=== PATIENT | male | born 1970 | race Caucasian/White ===

== ENCOUNTER 2016-06-08 17:39 | Emergency (ER) | payer BC ==
[~2016-06-08] VITALS: Ht 177.8 cm; Wt 95.4 kg
[2016-06-08 17:44] VITALS: TEMP 37; Ht 177.8 cm; Wt 95.4 kg
[2016-06-08] MEDS ORDERED: AMPICILLIN/SULBACTAM SOD INJ 3,000 MG in SODIUM CHLORIDE 0.9% 100ML 100 ML IV ONE (18:30)
[2016-06-08 18:47] LABS: BASO % 0.2 %; BASO ABS # 0.02 K/uL (0-0.2); COMPLETE YES; HEMATOCRIT 43.8 % (42-52); IG% 0.2 %; LYMPH % 10.8 %; MEAN CELL VOLUME 89.8 fL (80-100); MEAN CORPUSCULAR HEMOGLOBIN 32.4 pg (25-34); MEAN CORPUSCULAR HGB CONC 36.1 g/dl (32-36); MEAN PLATELET VOLUME 9.1 fL (7.4-10.4); MONO % 10.8 %; PLATELET COUNT 218 K/uL (130-400); RED BLOOD COUNT 4.88 M/uL (4.7-6.1); WHITE BLOOD COUNT 10.23 K/uL (4.8-10.8)
--- NOTE | 2016-06-08 19:05 | EMERGENCY ROOM VISIT NOTE ---
History Report prepared by Timoteo: Demetria Stevens Under the Supervision of: Dr. Sunday Lezama M.D. First contact with patient: 18:07 Chief Complaint: DENTAL PAIN Stated Complaint: POSSIBLE ABCESS- LEFT EYE Nursing Triage Summary: Pt reports swelling and redness to left cheek/eye area sx started saturday denies pain "it is draining a little bit inside my mouth" History of Present Illness The patient is a 45 year old male who presents to the Emergency Room with complaints of worsening redness and swelling to his left cheek. The swelling and redness spreads to under his left eye. He states that these symptoms started two days ago. The area started to drain on the inside of his mouth this morning. The patient states that he had a similar episode of swelling this summer, but that this resolved quickly. Additionally, the patient states that it has been 3-4 years since he had been treated by a dentist. The patient denies any chronic medical issues. The patient denies any pain associated with the swelling, swelling or bumps to other areas of his body, dental pain, LOC, headache, fevers, chills, diaphoresis, visual changes, neck pain, chest pain, breathing difficulties, nausea, vomiting, abdominal pain, back pain, melena, hematochezia, urinary symptoms, numbness, weakness, lymphadenopathy, rash, or other complaints. Source of History: patient Onset: 2 days ago Position: other (face) Quality: other (facial swelling and redness) Timing: worsening Note: The area started to drain on the inside of his mouth this morning. Review of Systems See HPI for pertinent positives and negatives. A total of ten systems were reviewed and were otherwise negative. Past Medical & Surgical Medical Problems: (1) Lyme disease Family History Diabetes mellitus Heart disease Hypertension Kidney disease Kidney stones Social History Smoking Status: Never Smoker Marital Status: Housing Status: lives with significant other Occupation Status: employed Current/Historical Medications Scheduled Amoxicillin & Pot Clavulanate (Augmentin 875-125 mg), 875 MG PO BID Allergies Coded Allergies: No Known Allergies (Unverified , 06/08/16) Physical Exam Vital Signs Date Time Temp Pulse Resp B/P Pulse Ox O2 Delivery O2 Flow Rate FiO2 06/08/16 19:47 78 18 135/78 97 Room Air 06/08/16 17:44 37.0 89 18 157/99 95 Room Air Physical Exam GENERAL: Awake, alert, well-appearing, in no distress HENT: Normocephalic, atraumatic. Oropharynx unremarkable. Redness and swelling to the left maxilla and inferior aspect of the left orbit, swelling to the upper left gum line with active purulent drainage. EYES: Normal conjunctiva. Sclera non-icteric. PERRL, EOMI NECK: Supple. No nuchal rigidity. FROM. No JVD. RESPIRATORY: Clear to auscultation. CARDIAC: Regular rate, normal rhythm. Extremities warm and well perfused. Pulses equal. ABDOMEN: Soft, non-distended. No tenderness to palpation. No rebound or guarding. No masses. MUSCULOSKELETAL: Chest examination reveals no tenderness. The back is symmetrical on inspection without obvious abnormality. There is no CVA tenderness to palpation. No joint edema. LOWER EXTREMITIES: Calves are equal size bilaterally and non-tender. No edema. No discoloration. NEURO: Normal sensorium. No sensory or motor deficits noted. SKIN: No rash or jaundice noted. Medical Decision & Procedures Laboratory Results 06/08/16 18:31 Red Blood Count 4.88, Mean Corpuscular Volume 89.8, Mean Corpuscular Hemoglobin 32.4, Mean Corpuscular Hemoglobin Concent 36.1, Mean Platelet Volume 9.1, Neutrophils (%) (Auto) 78.0, Lymphocytes (%) (Auto) 10.8, Monocytes (%) (Auto) 10.8, Eosinophils (%) (Auto) 0.0, Basophils (%) (Auto) 0.2, Neutrophils # (Auto ) 7.99, Lymphocytes # (Auto) 1.10, Monocytes # (Auto) 1.10, Eosinophils # (Auto ) 0.00, Basophils # (Auto) 0.02 06/08/16 18:31 Test 06/08/16 18:31 White Blood Count 10.23 K/uL (4.8-10.8) Red Blood Count 4.88 M/uL (4.7-6.1) Hemoglobin 15.8 g/dL (14.0-18.0) Hematocrit 43.8 % (42-52) Mean Corpuscular Volume 89.8 fL (80-100) Mean Corpuscular Hemoglobin 32.4 pg (25-34) Mean Corpuscular Hemoglobin Concent 36.1 g/dl (32-36) Platelet Count 218 K/uL (130-400) Mean Platelet Volume 9.1 fL (7.4-10.4) Neutrophils (%) (Auto) 78.0 % Lymphocytes (%) (Auto) 10.8 % Monocytes (%) (Auto) 10.8 % Eosinophils (%) (Auto) 0.0 % Basophils (%) (Auto) 0.2 % Neutrophils # (Auto) 7.99 K/uL (1.4-6.5) Lymphocytes # (Auto) 1.10 K/uL (1.2-3.4) Monocytes # (Auto) 1.10 K/uL (0.11-0.59) Eosinophils # (Auto) 0.00 K/uL (0-0.5) Basophils # (Auto) 0.02 K/uL (0-0.2) RDW Standard Deviation 41.6 fL (36.4-46.3) RDW Coefficient of Variation 12.8 % (11.5-14.5) Immature Granulocyte % (Auto) 0.2 % Immature Granulocyte # (Auto) 0.02 K/uL (0.00-0.02) Anion Gap 12.0 mmol/L (3-11) Est Creatinine Clear Calc Drug Dose 112.7 ml/min Estimated GFR () 109.0 Estimated GFR (Non- 94.1 BUN/Creatinine Ratio 11.9 (10-20) Calcium Level 9.0 mg/dl (8.5-10.1) Laboratory results reviewed by me Medications Administered Medications (Trade) Dose Ordered Sig/Brock Route Start Time Stop Time Status Last Admin Dose Admin Ampicillin Sodium/ Sulbactam Sodium/ Sodium Chloride (Unasyn Inj/Nss 100ml) 108 ml @ 200 mls/hr ONE ONCE IV 06/08/16 18:30 06/08/16 19:02 DC 06/08/16 18:58 200 MLS/HR Amoxicillin/ Clavulanate Potassium (Augmentin Tab) 875 mg BID PO 06/08/16 21:00 06/08/16 21:00 DC 06/08/16 19:50 875 MG Procedure Incision & Drainage Indication: Abscess. Location: left maxilla Verbal consent was obtained after the risks and benefits were explained, including but not limited to bleeding, scarring, infection, pain, and bone/joint /nerve damage. At this time, the risks of the procedure are less than the risks of NOT performing the procedure. A time out was taken and the correct patient and site identified. No anaesthetic was required. The abscess cavity was entered with an 18 gauge needle and a copious amount of purulent drainage was suctioned. The wound was explored for foreign bodies and none found. Debridement was not performed. Packing placed and a sterile dressing applied. Detailed wound care instructions and signs and symptoms of worsening infection reviewed with the patient. No complications and the patient tolerated the procedure well. ED Course 1809: The patient was evaluated in room C10. A complete history and physical exam was performed. 1829: Ampicillin Sodium/ Sulbactam Sodium 3000 mg/ Sodium Chloride 108 ml @ 200 mls/hr IV 2099: Augmentin Tab 875 mg PO 1930: I reevaluated the patient; he is doing well. Discussed results and discharge instructions: He verbalized understanding and agreement. The patient is ready for discharge. Medical Decision Triage Nursing notes reviewed. The patient's presentation and history were concerning for facial swelling and drainage. Etiologies such as dental abscess, cellulitis, facial abscess, MRSA infection, dermatitis, necrotizing fasciitis, as well as others were entertained. The patient was evaluated. There was drainage occurring from the abscess above the left upper premolar. His teeth were significantly carious. I suspect that this is the source. The patient had the abscess drained. I was able to utilize an 18-gauge needle and open the tract slightly. The patient tolerated this well. He was not having any pain. Copious pus was expressed and suctioned. Culture was sent. The patient was started on IV Unasyn. He will need oral Augmentin and close follow-up with his dentist. He will see them on Saturday. By the evaluation outlined above other emergent etiologies such as those listed in the differential, as well as others, were deemed relatively unlikely. The patient and family were informed about the findings as listed above. All questions were answered and they were pleased with the treatment. Return instructions were outlined and the patient was discharged in stable condition. The patient was referred to his dentist for follow-up Saturday for a recheck of the current condition. The chart was completed utilizing [email or web address] voice recognition software. Grammatical errors, random word insertions, pronoun errors, and incomplete sentences are an occasional consequence of this system due to software limitations, ambient noise, and hardware issues. Any formal questions or concerns about the content, text, or information contained within the body of this dictation should be directly addressed to the physician for clarification. Impression Primary Impression: Facial abscess Additional Impression: Dental caries Scribe Attestation The scribe's documentation has been prepared under my direction and personally reviewed by me in its entirety. I confirm that the note above accurately reflects all work, treatment, procedures, and medical decision making performed by me. Departure Information Dispostion Home / Self-Care Prescriptions Amoxicillin & Pot Clavulanate (Augmentin 875-125 mg) 1 Tab Tab 875 MG PO BID, #18 TAB Prov: Sunday Lezama MD 06/08/16 Referrals No Doctor, Assigned (PCP) Patient Instructions My [facility] Additional Instructions Diagnosis: #1 dental abscess #2 dental caries (multiple cavities) Amoxicillin Clavulanate (Augmentin) 875mg: Take one pill twice daily for 10 days for your infection. All antibiotics can cause diarrhea. If this occurs and you feel worse or it does not resolve in 1-2 days follow up with your doctor or return to the Emergency Department as this could be signs of serious underlying problems. Any medication can cause an allergic reaction, stop the pills immediately and return to the ER for rash, hives, breathing difficulties, or swelling. Ibuprofen(Motrin, Advil) may be used for fever or pain. Use 600mg every six hours as needed. Take with food. Avoid using more than 2400mg in a 24 hour period. Do not use 2400mg per day for more than three consecutive days without physician direction. Prolonged inappropriate use can lead to stomach upset or ulcers. (AND/OR) Acetaminophen(Tylenol) may be used for fever or pain. Use 1000mg every six hours as needed. Avoid using more than 4000mg in a 24 hour period. Warm compresses to the affected area 4 times daily for 15-20 minutes. Rest and drink plenty of fluids. Continue current medications. Return to the ER for severe pain, persistent fevers, spreading redness, or any worsening of your condition. Follow up with your dentist on Saturday for a recheck of the current condition and further treatment. Problem Qualifiers
[2016-06-08 19:08] LABS: BUN/CREATININE RATIO 11.9 (10-20); CREATININE 0.98 mg/dl (0.60-1.40); POTASSIUM 3.7 mmol/L (3.5-5.1)
[2016-06-08] MEDS ORDERED: AMOX875T PO (19:40)
[2016-06-08] MEDS ORDERED: AMOXICIL/CLAVU 875MG HOME PACK PO ONE (19:44)
[2016-06-08 19:47] VITALS: BP 135/78; PULSE 78; O2SAT 97
[2016-06-08] MEDS ORDERED: AMOXICILLIN/CLAVULANATE TAB 875 MG TAB PO SCH (21:00)
== END 2016-06-08 19:53 | disposition home or self-care (01) ==
LOC: C.EDB 17:42 → C.EDC 19:53
DX: L02.01 Cutaneous abscess of face (principal); K02.9 Dental caries, unspecified